=== PATIENT | female | born 1995 | race African-American/Black ===

== ENCOUNTER 2024-03-28 20:01 | Emergency (ER) | payer OTHER ==
[2024-03-28 20:23] VITALS: BP 116/77; PULSE 87; RESP 18; TEMP 99; BMI 39.9
[2024-03-28] MEDS ORDERED: METOCLOPRAMIDE HCL INJECTION 10 MG/2 ML VIAL ONE (21:29)
[2024-03-28] MEDS: METOCLOPRAMIDE HCL INJECTION 10 MG/2 ML VIAL IVPB ONE (21:40)
== END 2024-03-28 22:39 | disposition home or self-care (01) ==
LOC: JERFT 20:01 → JER 20:01 → JERFT 22:39
PROC: 3E033GC Introduction of Other Therapeutic Substance into Peripheral Vein, Percutaneous Approach (ICD-10-PCS; principal; 2024-03-28)
DX: R51.9 Headache, unspecified (principal)
CPT/HCPCS: 99284-25